=== PATIENT | male | born 1965 | race Caucasian/White ===

== ENCOUNTER 2016-12-26 09:48 | Emergency (ER) | payer BC ==
[2016-12-26 09:53] VITALS: BP 165/91; PULSE 62; RESP 18; TEMP 98.1; O2SAT 97
[2016-12-26] MEDS ORDERED: ONDANSETRON DISINTEGRATING 4 MG TAB ONE (10:05)
[2016-12-26] MEDS ORDERED: IBUPROFEN 600 MG TAB PO ONE ×2 (10:05→10:10)
[2016-12-26] MEDS ORDERED: ONDANSETRON DISINTEGRATING 4 MG TAB PO ONE (10:05)
--- NOTE | 2016-12-26 10:06 | EDPHY ---
HPI/HX/ROS/PE/MDM Narrative: CHIEF COMPLAINT: Head injury HPI: The patient is a 51 y/o male arriving with his complaining of head pain, dizziness, and nausea secondary to a slip and fall about 45 minutes ago. 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 He did not lose consciousness and denies chest, abdominal, pelvic, or extremity injury. He had some epistaxis directly after the fall that resolved. About 30 minutes after the injury, he developed dizziness, nausea, and neck pain prompting him to come into the ED. He denies recent illness and does not take anticoagulants. No pertinent medical history. REVIEW OF SYSTEMS: Aside from elements discussed in the HPI, a comprehensive 10-point review of systems was reviewed and is negative. PMH: On preventative statin SOCIAL HISTORY: Works as IT executive. at bedside. PHYSICAL EXAM: General:Patient is alert, in no acute distress. Head: No hematoma or crepitus. ENT:Eyes are normal to inspection. ENT inspection normal. Neck: Full range of motion. Mild paraspinous tenderness along upper neck. Respiratory:No respiratory distress. Breath sounds normal bilaterally. Cardiovascular: Regular rate and rhythm. Strong peripheral pulses. Normal cap refill. Abdomen:The abdomen is nontender to palpation. There are no peritoneal signs. There are normal bowel sounds. Back: Normal to inspection. No tenderness to palpation. Skin: Normal color. No rash. Warm and dry. Extremities: Normal appearance. Full range of motion. Neuro: Oriented x3. Normal motor function. Normal sensory function. ED Course: Plan for head and neck CTs. 4mg PO Zofran and 600mg PO ibuprofen administered. The 12 lead EKG was interpreted by myself. See hard copy and/or "tracemaster" electronic copy for interpretation. Study: CT of the Head Indication: Trauma, dizziness Results: CT scan of the head was obtained. The results of the study are negative. The study was read by the radiologist, Dr. Fulton. I viewed the images myself on the PACS system. Study: CT of the Neck Indication: Trauma, neck pain Results: CT scan of the neck was obtained. The results of the study are negative. The study was read by the radiologist, Dr. Fulton. I viewed the images myself on the PACS system. 1145: I discussed imaging results with patient. He will be discharged with standard concussion instructions and referral to Dr. Ruiz as needed for follow up. Return precautions given. He is comfortable with this plan. MDM: This patient presents with minor head injury after fall from standing. Given his nose bleed and nausea, we performed a CT scan of the head and neck to ensure that there was no series trauma. This is negative for skull fracture, subarachnoid hemorrhage, epidural hematoma, subdural hematoma or cervical spine fracture. The patient has a normal exam on re-evaluation. His is concerned that he was bradycardic so we performed an EKG which reveals only sinus bradycardia without other abnormalities. - Data Points Medications Given: Discontinued Medications Ibuprofen (Motrin) 600 mg PO ONCE ONE Stop: 12/26/16 10:11 Last Admin: 12/26/16 10:14 Dose: 600 mg Ondansetron HCl (Zofran Odt) 4 mg PO EDNOW ONE Stop: 12/26/16 10:06 Last Admin: 12/26/16 10:09 Dose: 4 mg General Time Seen by Provider: 12/26/16 09:55 Initial Vital Signs: Initial Vital Signs Temperature (C) 36.7 C 12/26/16 09:50 Heart Rate 62 12/26/16 09:50 Respiratory Rate 18 12/26/16 09:50 Blood Pressure 165/91 H 12/26/16 09:50 O2 Sat (%) 97 12/26/16 09:50 O2 Delivery Mode Room Air Allergies/Adverse Reactions: No Known Allergies Allergy (Unverified 04/30/14 07:42) Home Medications: Medication Instructions Recorded Atorvastatin Calcium 12/26/16 Losartan Potassium 12/26/16 Departure - Departure Disposition: Home, Routine, Self-Care Clinical Impression: Head injury Qualifiers: Encounter type: initial encounter Qualifier Code: (S09.90XA) Unspecified injury of head, initial encounter Concussion Qualifiers: Encounter type: initial encounter Loss of consciousness presence/duration: without LOC Qualifier Code: (S06.0X0A) Concussion without loss of consciousness , initial encounter Condition: Good Instructions: Head Injury (ED), Concussion (ED) Additional Instructions: 1. Brain rest while symptoms are present. Limit screen time including TV, computers, phones. Increase activity incrementally as tolerated and reduce activity if symptoms worsen. 2. Avoid any physical activity that could lead to a recurrent concussion while symptoms are present. No contact sports, skiing, biking for around 2 weeks. 3. Use Tylenol or ibuprofen as needed for pain, not to exceed 7 days of use. 4. Follow up with Dr. Ruiz, head injury specialist, for symptoms not improved over the next 10 days. 5. Return to the ED for severe headache, weakness or numbness on one side of your body, vision changes, speech difficulty, or other worsening of condition. Referrals: Faizan Boyer MD [Primary Care Provider] - As per Instructions Report Scribed for: Etienne Ngo Report Scribed by: Yesi Davis Date of Report: 12/26/16 Time of Report: 09:57 Physician Review and Approval Statement: Portions of this note were transcribed by an ED scribe. I personally performed the history, physical exam, and medical decision making; and confirm the accuracy of the information in the transcribed note.
--- NOTE | 2016-12-26 11:34 | CPEKG ---
Heart Rate: 54 RR Interval: 1111 P-R Interval: 216 QRSD Interval: 106 QT Interval: 428 QTC Interval: 406 P [place]: 20 QRS [place]: 15 T Wave [place]: 0 EKG Severity - ABNORMAL ECG - EKG Impression: SINUS RHYTHM EKG Impression: FIRST DEGREE AV BLOCK EKG Impression: BORDERLINE T ABNORMALITIES, INFERIOR LEADS Electronically Signed By: Etienne Ngo 27-Dec-2016 15:13:41
--- NOTE | 2016-12-26 11:36 | CT ---
Noncontrast Head CT and CT Cervical Spine 1013 hours History: Closed head injury. Recent fall. Technique: Standard noncontrast head CT protocol utilizing axial images was acquired through the [place] varium. Images were reconstructed in multiple planes as well. Spiral imaging was obtained through the cervical spine. Images were reconstructed at 1.25 mm slice th ickness. Images were reconstructed in multiple planes. Images through the brain were repeated seconda ry to patient motion. Dose reduction techniques were utilized. Findings: Comparison to prior head CT study from April 30, 2014 CT Head: The cerebral parenchyma has a normal attenuation throughout. There are no masses, intracrani al hemorrhage, subdural collections, or evidence of recent cerebral infarction. The bones are unrema rkable. Air-fluid level is now seen in the left maxillary sinus. Mild mucosal thickening is noted inf erior left maxillary sinus. The remainder of the paranasal sinuses are clear as well as mastoid air c ells. CT Cervical Spine: Vertebral body heights are well maintained. There are no subluxations. No fracture s are seen. Facet joints are normal bilaterally. There is moderate intervertebral disk space narrowin g with mild disk bulge suspected at C5-C6 and at C6-C7. Paravertebral soft tissues demonstrate no sig nificant abnormality. Impression: 1. No acute intracranial abnormality seen. 2. Left maxillary sinus disease. 3. Moderate degenerative disk disease C5-C6 and C6-C7. 7. No acute osseous abnormality seen about the cervical spine. These findings were discussed by telephone with Dr. Etienne Ngo at 1045 hrs.
== END 2016-12-26 12:16 | disposition home or self-care (01) ==
DX: S06.0X0A Concussion without loss of consciousness, initial encounter (principal); W01.198A Fall on same level from slipping, tripping and stumbling with subsequent striking against other object, initial encounter; Y92.014 Private driveway to single-family (private) house as the place of occurrence of the external cause; Y99.0 Civilian activity done for income or pay; Y93.01 Activity, walking, marching and hiking

== ENCOUNTER 2017-05-03 08:07 | Emergency (ER) | payer BC ==
[2017-05-03] MEDS ORDERED: TDAP ADULT 0.5 ML INJ (BOOSTRIX) IM ONE (08:14)
--- NOTE | 2017-05-03 08:48 | EDPHY ---
H & P Time Seen by Provider: 05/03/17 08:15 HPI/ROS: CHIEF COMPLAINT: Laceration right ear HISTORY OF PRESENT ILLNESS: 52-year-old male presents to the emergency department with a laceration to the right ear. The patient was at his home this morning and was picking a weed underneath a pine tree and the branch cut his right ear. The incident happened just prior to arrival. He denies any other trauma or injury. He is able to hear out of his ear. No symptoms in the left ear. Denies headache. Unsure of his last tetanus shot. ROS: Denies hearing loss or drainage from his ear. Denies symptoms in the left ear. Denies neck pain. Past Medical/Surgical History: Hypertension Social History: Smoking Status: Never smoked Physical Exam: On examination the patient has a complex, irregular 4 cm laceration noted to the helix and antihelix of the right ear. There is active bleeding noted. Obvious injury to the cartilage noted. The wound does not extend into the external auditory canal. Tympanic membrane is intact without injury. No evidence of retained foreign body. Nontender to palpate over the mastoid bone. Is neck is supple. Constitutional: Initial Vital Signs Temperature (C) 36.7 C 05/03/17 08:09 Heart Rate 57 L 05/03/17 08:09 Respiratory Rate 17 05/03/17 08:09 Blood Pressure 141/87 H 05/03/17 08:09 O2 Sat (%) 96 05/03/17 08:09 O2 Delivery Mode Room Air Allergies/Adverse Reactions: No Known Allergies Allergy (Verified 05/03/17 08:09) Home Medications: Medication Instructions Recorded Atorvastatin Calcium 12/26/16 Losartan Potassium 12/26/16 Cephalexin [Keflex] 500 mg PO QID #28 cap 05/03/17 MDM/Departure - MDM Procedures: Laceration repair. Verbal consent was obtained from the patient. The 4 cm complex irregular laceration on the right ear was anesthetized using 1% lidocaine with epinephrine. The wound was irrigated with saline, draped and explored to its base with a gloved finger. Very small not through and through laceration to the cartilage of the helix of the mid right ear. The wound was repaired with 6 0 Prolene, 17 sutures. The wound repair was complex. The procedure was performed by myself. Medications Given: Discontinued Medications Diphtheria/Tetanus/Acell Pertussis (Boostrix) 0.5 ml IM .ONCE ONE Stop: 05/03/17 08:15 Last Admin: 05/03/17 08:26 Dose: 0.5 ml ED Course/Re-evaluation: 52-year-old male presents with complex right ear laceration. The wound was repaired, see procedure note. Patient will be started on Keflex to prevent infection given his small injury to the cartilage. Patient was given wound care precautions. The patient's tetanus shot was updated. - Depart Disposition: Home, Routine, Self-Care Clinical Impression: Laceration of right ear Qualifiers: Encounter type: initial encounter Qualified Code(s): S01.311A - Laceration without foreign body of right ear, initial encounter Condition: Good Instructions: Care For Your Stitches (ED), Laceration (ED), Acute Wounds (ED) Additional Instructions: Wound Care Follow-Up: Removal of sutures in 7 days. Suture removal is complimentary in uncomplicated cases. Infection or abnormal findings would require reevaluation by the MD. In that case, you may be billed. Keflex 500 mg 4 times daily for 7 days to prevent infection. Apply bacitracin daily to the wounds. Return to the emergency department if he notices any signs or symptoms of infection such as redness, swelling, increased pain, fever , purulent drainage. Keep wound dry, clean and protected. Apply sunscreen to help minimize scarring after the sutures have been removed in your completely healed as discussed. Your given a tetanus shot in the emergency department. Prescriptions: Cephalexin [Keflex] 500 mg PO QID #28 cap Referrals: Faizan Boyer MD [Primary Care Provider] - As per Instructions
[2017-05-03 10:12] VITALS: BP 130/80; PULSE 56; RESP 15; TEMP 98.8; O2SAT 95
== END 2017-05-03 10:12 | disposition home or self-care (01) ==
DX: S01.311A Laceration without foreign body of right ear, initial encounter (principal); I10 Essential (primary) hypertension; Z23 Encounter for immunization; W22.8XXA Striking against or struck by other objects, initial encounter; Y92.009 Unspecified place in unspecified non-institutional (private) residence as the place of occurrence of the external cause; Y99.8 Other external cause status; Y93.89 Activity, other specified

== ENCOUNTER 2017-05-07 06:33 | Emergency (ER) | payer BC ==
[2017-05-07 06:38] VITALS: BP 153/87; PULSE 59; RESP 16; TEMP 98.2; O2SAT 95
--- NOTE | 2017-05-07 07:02 | EDPHY ---
H & P Stated Complaint: Rear wound recheck Time Seen by Provider: 05/07/17 06:51 HPI/ROS: Chief Complaint: LACERATION RECHECK HPI: The patient presents to the ED for recheck of a right ear laceration. He received sting day complex laceration to his right ear 4 days ago and was seen in the ED. He underwent primary closure at that point time. He was started on Keflex. Patient reports he has noticed a sensation of decreased hearing and swelling inside his right external auditory ear canal presents to the ED for further evaluation. He denies fever, headache, neck pain or additional acute complaints. REVIEW OF SYSTEMS: ENT: As above Neuro: no headache, numbness, weakness Skin: As above Source: Patient - Personal History Current Tetanus/Diphtheria Vaccine: Yes Current Tetanus Diphtheria and Acellular Pertussis (TDAP): Yes - Medical/Surgical History Hx Asthma: No Hx Chronic Respiratory Disease: No Hx Diabetes: No Hx Cardiac Disease: No Hx Renal Disease: No Hx Cirrhosis: No Hx Alcoholism: No Hx HIV/AIDS: No Hx Splenectomy or Spleen Trauma: No Other PMH: HTN - Social History Smoking Status: Never smoked - Physical Exam Exam: General Appearance: Alert, no distress Eyes: Pupils equal and round no pallor or injection ENT, Mouth: Swelling noted within the right external auditory ear canal Neurological: Neurologically intact Skin: Well-healed laceration noted to the external surface of the ear Constitutional: Initial Vital Signs Temperature (C) 36.8 C 05/07/17 06:36 Heart Rate 59 L 05/07/17 06:36 Respiratory Rate 16 05/07/17 06:36 Blood Pressure 153/87 H 05/07/17 06:36 O2 Sat (%) 95 05/07/17 06:36 O2 Delivery Mode Room Air Allergies/Adverse Reactions: No Known Allergies Allergy (Verified 05/07/17 06:35) Home Medications: Medication Instructions Recorded Atorvastatin Calcium 12/26/16 Losartan Potassium 12/26/16 Cephalexin [Keflex] 500 mg PO QID #28 cap 05/03/17 Medical Decision Making ED Course/Re-evaluation: The patient presents to the ED with swelling to his external auditory canal in the setting of recent here laceration. The patient is afebrile and in no acute distress. He has no meningeal symptoms. The patient is currently taking Keflex. I have asked the patient to contact our on-call Ear Nose Throat physician Dr. Gary for a recheck today. Departure - Departure Disposition: Home, Routine, Self-Care Clinical Impression: Laceration of right external ear Condition: Good Instructions: Laceration (ED) Additional Instructions: 1. Please contact the Ear Nose Throat physician you have been referred to at 8: 30 a.m. this morning to schedule an ED follow-up visit for today. If they are unable to schedule an appointment for you, please contact the emergency department at [phone]. 2. Continue antibiotics as prescribed. Referrals: Etienne Gary MD [Medical Doctor] - As per Instructions
== END 2017-05-07 07:23 | disposition home or self-care (01) ==
DX: Z48.01 Encounter for change or removal of surgical wound dressing (principal); I10 Essential (primary) hypertension
CPT/HCPCS: G0463

== ENCOUNTER 2018-03-20 10:27 | Emergency (ER) | payer BC ==
[2018-03-20] MEDS ORDERED: OXYCODONE/APAP 5/325 TAB PO ONE (10:36)
--- NOTE | 2018-03-20 10:37 | EDPHY ---
H & P Stated Complaint: Fell off ladder. Pinched and skinned testicles. Time Seen by Provider: 03/20/18 10:37 HPI/ROS: HPI: This is a 53-year-old male who presents with Chief Complaint: Fell off ladder. Pinched and skinned testicles. Location: Left scrotum Quality: Trauma and laceration Duration: Prior to arrival Signs and Symptoms: No bleeding, no radiation, no numbness, no weakness, no tingling, no incontinence, no decreased range of motion, no swelling, + pain, no fever, no hematuria, no urinary retention Timing: Acute Severity: Moderate Context: Patient was wearing pants when he was opening up of a ladder getting ready to remove a brand when the ladder snapped back and closed on his left testicle. He reports that his pants were ripped and his left testicle was pinched and skin. He reports some nausea but no abdominal pain/vomiting/ difficulty urinating/blood in urine. Reports tetanus is current. Denies LOC/ head injury/neck pain/dizziness/nausea/vomiting/amnesia. Modifying Factors: None Comment: ROS: see HPI Constitutional: No fever, no chills, no weight loss Eyes: No blurred vision Respiratory: No shortness of breath, no cough Cardiovascular: No chest pain Gastrointestinal: No nausea, no vomiting no diarrhea Genitourinary: No dysuria Extremities: No myalgias Neurologic: No weakness, no numbness Skin: No rashes Hematologic: No bruising, no bleeding MEDICAL/SURGICAL/SOCIAL HISTORY: Medical history: Hypertension, hyperlipidemia. Surgical history: vasectomy Social history: and employed. Resident of business. CONSTITUTIONAL: Polite and cooperative adult male, awake and alert, moderate distress HEENT: Atraumatic and normocephalic. NECK: supple. No meningismus. Cardiovascular: Normal S1/S2, regular rate, regular rhythm, without murmur rub or gallop. PULMONARY/CHEST: Symmetrical and nontender. no crepitus. Clear to auscultation bilaterally. Good air movement. No accessory muscle usage. ABDOMEN: Soft, nondistended, nontender, no ecchymosis. PELVIC: no pain with rocking; bilateral hips flexion 125 degrees, extension 30 degrees, with no pain internal rotation and no pain external rotation. Male : circumcised penis, bilateral descended testes, no testicular swelling, 2 in x 2 in skin superficial avulsion noted in the upper portion near 12 o' clock of the left scrotum-no active bleeding. no testicular masses. EXTREMITIES: 2/2 pulses, strength 5/5, DIP/PIP/MCP flexion/extension intact with good light touch sensation. no deformities, no clubbing, no cyanosis or edema. NEUROLOGICAL: no focal neuro deficits. GCS 15. Light touch sensation intact. SKIN: Warm and dry, no erythema. no rash. Good capillary refill. Source: Patient, Family () Exam Limitations: No limitations - Personal History Current Tetanus/Diphtheria Vaccine: Yes Current Tetanus Diphtheria and Acellular Pertussis (TDAP): Yes - Medical/Surgical History Hx Asthma: No Hx Chronic Respiratory Disease: No Hx Diabetes: No Hx Cardiac Disease: No Hx Renal Disease: No Hx Cirrhosis: No Hx Alcoholism: No Hx HIV/AIDS: No Hx Splenectomy or Spleen Trauma: No Other PMH: HTN - Social History Smoking Status: Never smoked Constitutional: Initial Vital Signs Temperature (C) 37.0 C 03/20/18 10:30 Heart Rate 64 03/20/18 10:30 Blood Pressure 150/108 H 03/20/18 10:30 O2 Sat (%) 94 03/20/18 10:30 O2 Delivery Mode Room Air Allergies/Adverse Reactions: No Known Allergies Allergy (Verified 05/07/17 06:35) Home Medications: Medication Instructions Recorded Atorvastatin Calcium 12/26/16 Losartan Potassium 12/26/16 Cephalexin [Keflex] 500 mg PO QID #28 cap 05/03/17 Medical Decision Making - Diagnostics Imaging Results: Imaging Impressions Testicular Ultrasound 03/20/18 10:36 Impression: 1. No evidence for testicular laceration or hematoma. Normal blood flow to both testicles. 2. Mild bilateral hydroceles with mild debris. 3. Left varicocele. 4. Epididymal cysts in the head of both epididymides. Results called and discussed with Jalyn Gonzalez PA-C on March 20, 2018 at 1155 hours. Procedures: Procedure: Laceration repair. Verbal consent was obtained from the patient. The left superficial, scrotal, avulsed, simple, 1.5 inch by 1.5 inch laceration was anesthetized in the usual fashion using LET topical and 1 mL of 1% lidocaine without epinephrine. The wound was irrigated, draped and explored to its base with a gloved finger. There were no deep structures involved. No tendon injury was identified. The wound was repaired with #4, 6-0 Vicryl. Good hemostasis was achieved and patient tolerated procedure well. The procedure was performed by myself. ED Course/Re-evaluation: Given Percocet x2, let topical and ice pack applied to the left testicle. Testicular ultrasound ordered to evaluate for hematoma. Tetanus up-to-date Laceration repaired with absorbable sutures. 1150: Called by Radiology, Dr. Vidales, who advised that testicular ultrasound shows no hematoma, no testicular trauma. + left varicocele noted. Urinated prior to discharge without difficulty. Verbal and written wound care instructions provided to patient and . Per patient request, Uro jet given to patient to take home. This patient was seen under the supervision of my secondary supervising physician. I evaluated care for this patient independently. Differential Diagnosis: Differential diagnosis includes but is not limited to testicular hematoma, testicular laceration, testicular abrasion. - Data Points Medications Given: Discontinued Medications Lidocaine (Uroject Lidocaine 2% Jelly) 20 ml UR EDNOW ONE Stop: 03/20/18 12:06 Last Admin: 03/20/18 12:32 Dose: 20 ml Oxycodone/Acetaminophen (Percocet 5/325) 2 tab PO EDNOW ONE Stop: 03/20/18 10:37 Last Admin: 03/20/18 10:40 Dose: 2 tab Tetracaine/Epinephrine/Lidocaine (Let Gel Topical) 1 ea TP EDNOW ONE Stop: 03/20/18 10:43 Last Admin: 03/20/18 10:47 Dose: 1 ea Departure - Departure Disposition: Home, Routine, Self-Care Clinical Impression: Pain in testicle due to trauma, Skin avulsion Laceration of scrotum Qualifiers: Encounter type: initial encounter Qualified Code(s): S31.31XA - Laceration without foreign body of scrotum and testes, initial encounter Condition: Good Instructions: Laceration (ED), Care For Your Absorbable Stitches (ED), Scrotal Pain (ED) Additional Instructions: Keep the area dry for 48 hours. Do not shower or take a bath. After 48 hours, wash the site daily with mild soap and water; then pat dry and apply topical antibiotic ointment daily until fully healed. Take Tylenol 650 mg every 4 hours and/or Ibuprofen 600 mg every 8 hours with food as needed for pain. Apply ice for 30 minutes at a time; 2-3 times per day for the next 1-2 days. As this is a skin avulsion, there is a chance that the skin may not grow back entirely. You may apply topical let to the scrotal area every 12 hr as needed for pain. Do not apply to the penis. The sutures used to repair your laceration today are absorbable. They do not need to be removed. They will slowly dissolve over time. Return to the ER immediately if you experience new, continued or worsening abdominal pain, fevers/chills, inability to tolerate oral intake, inability to urinate, new pain, or any other symptoms that concern you. Referrals: PCP Not In,Dictionary [Medical Doctor] - As per Instructions
[2018-03-20] MEDS ORDERED: LET GEL TOPICAL 1 EA SYR TP ONE ×2 (10:42)
[2018-03-20] MEDS ORDERED: LIDOCAINE 2% JELLY 20 ML (UROJECT) UR ONE (12:05)
[2018-03-20 12:35] VITALS: BP 135/82
== END 2018-03-20 12:35 | disposition home or self-care (01) ==
PROC: 0HQAXZZ Repair Inguinal Skin, External Approach (ICD-10-PCS; principal; 2018-03-20)
DX: S31.31XA Laceration without foreign body of scrotum and testes, initial encounter (principal); I10 Essential (primary) hypertension; W11.XXXA Fall on and from ladder, initial encounter; Y99.8 Other external cause status; Y93.89 Activity, other specified

== ENCOUNTER → 2018-06-17 | Outpatient (CLI) | payer BC, OTHER | LOC: FIMAGING 10:05 | PROVIDERS: ATTEND Internal Medicine | DX: N28.1 Cyst of kidney, acquired (principal); R39.198 Other difficulties with micturition ==